=== PATIENT | male | born 2000 | race Two or more races ===

== ENCOUNTER 2020-07-25 23:07 | Emergency (ER) | payer OTHER ==
[~2020-07-25] VITALS: Ht 188 cm; Wt 64.0 kg
[2020-07-25] MEDS ORDERED: SODIUM CHLORIDE 0.9% 1,000ML IVBOLUS ONE (23:30)
[2020-07-25 23:39] LABS: BASOPHILS % (AUTO) 0 % (0-1); EOSINOPHILS % (AUTO) 2 % (1-7); LYMPHOCYTES % (AUTO) 15 % (22-44); MEAN CORPUSCULAR HEMOGLOBIN 31.9 pg (27.5-34.5); MEAN CORPUSCULAR HGB CONC 34.2 g/dL (33.2-36.2); MEAN PLATELET VOLUME 7.4 fL (7.4-10.4); MONOCYTES % (AUTO) 6 % (2-9); NEUTROPHILS % (AUTO) 77 % (42-75); PLATELET COUNT 267 x10^3/uL (130-400); RED BLOOD COUNT 4.87 x10^6/uL (4.38-5.82); RED CELL DISTRIBUTION WIDTH 12.3 % (9.4-14.8)
[2020-07-25 23:42] LABS: MD NO
[2020-07-25 23:46] LABS: ALANINE AMINOTRANSFERASE 19 U/L (12-78); ALBUMIN 3.8 g/dL (3.4-5.0); ANION GAP 6 mmol/L (5-15); CALCIUM 8.4 mg/dL (8.5-10.1); CHLORIDE 109 mmol/L (98-107); CREATININE 1.05 mg/dL (0.7-1.3)
[2020-07-25 23:49] LABS: ALKALINE PHOSPHATASE 96 U/L (45-117); BILIRUBIN,TOTAL 3.7 mg/dL (0.2-1.0); TOTAL PROTEIN 6.8 g/dL (6.4-8.2)
--- NOTE | 2020-07-25 23:58 | NUR ---
SISTER QUANG [phone]
[2020-07-26] MEDS ORDERED: ONDANSETRON ODT 4 MG ONE (01:10)
[2020-07-26] MEDS ORDERED: MAALOX/HYOSCYAMINE/LIDOCAINE 45 ML BTL ONE (01:10)
--- NOTE | 2020-07-26 01:19 | NUR ---
report given to leni rn, break rn
[2020-07-26] MEDS ORDERED: ONDANSETRON ODT 4 MG PO ONE (01:30)
[2020-07-26] MEDS ORDERED: MAALOX/HYOSCYAMINE/LIDOCAINE 45 ML BTL PO ONE (01:30)
[2020-07-26] MEDS ORDERED: PLEASE ENTER ALLERGIES MC SCH (01:30)
--- NOTE | 2020-07-26 01:32 | NUR ---
REPORT RECEIVED FROM TRAN POTTS
--- NOTE | 2020-07-26 02:28 | NUR ---
TASK RN, PT DC'D, IV DC'D. PT WENT TO STAND UP AND STATED SYMPTOMS CAME BACK. PT STATES "MY STOMACH FEELS VERY ACIDY".PT NOW VERY PALE. MD AWARE. ORHOS TAKEN AND NEGATIVE. PT TRIED WALKING AROUND UNIT, BECAME MORE PALE. PT PLACED BACK IN ROOM, NEW PIV STARTED AND IV FLUIDS RUNNING. AKSHAT POTTS UPDATED.
[2020-07-26] MEDS ORDERED: SODIUM CHLORIDE FLUSH 10ML SYR IVF ONE (02:30)
[2020-07-26] MEDS ORDERED: SODIUM CHLORIDE 0.9% 1,000ML IVBOLUS ONE ×2 (02:30→03:00)
[2020-07-26 02:49] LABS: BASOPHILS % (AUTO) 1 % (0-1); EOSINOPHILS % (AUTO) 0 % (1-7); LYMPHOCYTES % (AUTO) 10 % (22-44); MEAN CORPUSCULAR HEMOGLOBIN 31.4 pg (27.5-34.5); MEAN CORPUSCULAR HGB CONC 33.7 g/dL (33.2-36.2); MEAN PLATELET VOLUME 7.7 fL (7.4-10.4); MONOCYTES % (AUTO) 4 % (2-9); NEUTROPHILS % (AUTO) 86 % (42-75); PLATELET COUNT 298 x10^3/uL (130-400); RED CELL DISTRIBUTION WIDTH 12.7 % (9.4-14.8)
[2020-07-26 02:58] LABS: MD NO
[2020-07-26 05:06] VITALS: BP 95/51
--- NOTE | 2020-07-26 05:15 | NUR ---
PT AMBULATORY WITH STEADY GAIT THROUGH ED. PT REPORTS "FEELING MUCH BETTER THIS TIME AROUND. MY STOMACH ISNT ACTING UP AND I FEEL BETTER". PT RETURNED TO ROOM, PIV REMOVED. AWAITING D/C. PT DENIES ANY ADDITIONAL NEEDS. CONTACTING SISTER FOR RIDE HOME.
--- NOTE | 2020-07-26 05:30 | NUR ---
Patient given discharge instructions and they have confirmed that they understand the instructions. Patient ambulatory with steady gait.
[2020-07-26] MEDS ORDERED: OMNIPAQUE 350 MG/ML, 100ML BOTTLE ONE (05:38)
== END 2020-07-26 06:00 | disposition home or self-care (01) ==
LOC: ED 07-26 05:55
DX: S03.2XXA Dislocation of tooth, initial encounter (principal); R55 Syncope and collapse; K29.00 Acute gastritis without bleeding; X58.XXXA Exposure to other specified factors, initial encounter; Y93.89 Activity, other specified; Y92.89 Other specified places as the place of occurrence of the external cause; Y99.8 Other external cause status; E80.6 Other disorders of bilirubin metabolism
CPT/HCPCS: 36415; 74177; 76700; 80053; 83690; 85025; 93005; 96360; 99285; J7030; Q0162; Q9967